=== PATIENT | female | born 1980 | race Caucasian/White ===

== ENCOUNTER → 2021-04-16 13:29 | Outpatient (REF) | payer BC, SELFPAY | LOC: ANHLAB 13:29 | PROVIDERS: PCP Nurse Practitioner Family; Visit Provider Nurse Practitioner | DX: D22.72 Melanocytic nevi of left lower limb, including hip (principal) | CPT/HCPCS: 88305 ==

== ENCOUNTER 2022-01-15 08:00 | Outpatient (NON) | payer BC, SELFPAY | END 2022-01-15 08:01 | disposition home or self-care (01) | LOC: ANHLAB 01-16 10:30 | PROVIDERS: PCP Nurse Practitioner Family; Visit Provider Nurse Practitioner | DX: L72.0 Epidermal cyst (principal) | CPT/HCPCS: 88305 ==